=== PATIENT | male | born 1955 | race Caucasian/White ===

== ENCOUNTER 2020-01-07 13:18 | Inpatient (IN) | payer MEDICARE, OTHER ==
[~2020-01-07] VITALS: Ht 165.1 cm; Wt 69.9 kg
--- NOTE | 2020-01-07 13:25 | NUR ---
Patient BIB pvt ambulance via [facility]. Patient on a 5150 hold for GD / DTS / DTO. Patient cooperative, able to make needs known / follow commands. Breathing even and unlabored. no cough or SOB noted. Denies any CP / Dizziness / N / V / D. safety precautions implemented. s/r up x2. [employer] Gilder aware. No 1:1 sitter available.
[2020-01-07] MEDS ORDERED: ACET-2154 PO (13:42)
[2020-01-07] MEDS ORDERED: INSU100V39 SQ (13:42)
[2020-01-07] MEDS ORDERED: INSULIN REGULAR, HUMAN 300 UNIT/3 ML VIAL SQ ONE (14:00)
--- NOTE | 2020-01-07 14:05 | NUR ---
SECURITY AT BEDSIDE
[2020-01-07] MEDS ORDERED: INSULIN REGULAR, HUMAN 300 UNIT/3 ML VIAL ONE (14:11)
[2020-01-07] MEDS ORDERED: ACETAMINOPHEN ES 500 MG TABLET ONE (15:51)
[2020-01-07 16:00] VITALS: BP 134/96
--- NOTE | 2020-01-07 16:00 | NUR ---
Received patient from ER was placed on 5150 for DTS,DTO,GD,per 5150 patient's called [facility] after pt started acting erratically threatening her ,demanding money ,not eating for a week,and not bathing and urinating on himself.On face to face assessment, patient denies everything, except that he was not eating for some time because he was not hungry, stated "Yes, I am feeling depressed, but I want to go home..", poor eyes contact when talking to staff, disoriented to time, stated "It is December 29..", low energy level, cooperative with staff, unable to formulate a viable plan for self care.
[2020-01-07] MEDS ORDERED: MAGNESIUM HYDROXIDE 30 ML LIQUID UDC PO PRN (16:30)
[2020-01-07] MEDS ORDERED: MAG HYDROX/AL HYDROX/SIMETH 30 ML LIQUID UDC PO PRN (16:30)
[2020-01-07] MEDS ORDERED: BLOOD SUGAR DIAGNOSTIC 1 EACH STRIP VI ONE (16:30)
[2020-01-07] MEDS ORDERED: LORAZEPAM 0.5 MG TABLET PO PRN (16:30)
[2020-01-07] MEDS ORDERED: ZOLPIDEM 5 MG TABLET PO PRN (16:30)
[2020-01-07] MEDS ORDERED: DEXTROSE 50% 50 ML DISP.SYRIN IV PRN (16:45)
[2020-01-07 20:00] VITALS: BP 149/69
[2020-01-07] MEDS: BLOOD SUGAR DIAGNOSTIC 1 EACH STRIP VI SCH (20:55)
[2020-01-07] MEDS: INSULIN REGULAR, HUMAN 300 UNIT/3 ML VIAL SQ PRN (20:57)
--- NOTE | 2020-01-07 23:00 | NUR ---
Received pt sleeping comfortably in bed. Aroused easily to verbal stimuli. Alert and oriented x3. Palauan speaking, able to make needs known. No acute distress noted. No c/o pain or discomfort. Accucheck 169, insulin coverage given as per sliding scale. Pt denies SI/ HI. Compliant with care. Safety measures maintained. Will continue to monitor.
[2020-01-08] MEDS: ACETAMINOPHEN 325 MG TABLET PO PRN ×3 (03:52→20:10)
[2020-01-08] MEDS: BLOOD SUGAR DIAGNOSTIC 1 EACH STRIP VI SCH ×4 (06:33→21:13)
[2020-01-08 06:52] LABS: BASOPHILS % (AUTO) 0.7 % (0.0-2.0); EOSINOPHILS # (AUTO) 0.1 K/uL (0.0-0.7); EOSINOPHILS % (AUTO) 1.2 % (0.0-7.0); HEMATOCRIT 38.6 % (36.7-47.1); HEMOGLOBIN 13.1 g/dL (12.5-16.3); LYMPHOCYTES # (AUTO) 1.1 K/uL (20.0-40.0); LYMPHOCYTES % (AUTO) 15.2 % (20.5-51.5); MEAN CORPUSCULAR HGB CONC 34 g/dL (32.5-36.3); MEAN CORPUSCULAR VOLUME 85.7 fL (73.0-96.2); MONOCYTES # (AUTO) 0.3 K/uL (2.0-10.0); MONOCYTES % (AUTO) 3.6 % (0.0-11.0); NEUTROPHILS # (AUTO) 5.8 K/uL (1.8-8.9); NEUTROPHILS % (AUTO) 79.3 % (38.5-71.5); PLATELET COUNT (AUTO) 408 K/uL (152-348); RED BLOOD CELL COUNT(AUTO) 4.51 MIL/uL (4.06-5.63); WHITE BLOOD COUNT (AUTO) 7.2 K/uL (3.6-10.2)
[2020-01-08 07:29] LABS: THYROID STIMULATING HORMONE 0.239 mIU/mL (0.358-3.740)
[2020-01-08 07:30] VITALS: BP 139/80
[2020-01-08] MEDS: INSULIN REGULAR, HUMAN 300 UNIT/3 ML VIAL SQ PRN ×4 (08:18→21:16)
[2020-01-08 08:19] LABS: BILIRUBIN,TOTAL 0.4 mg/dL (0.2-1.0); CREATININE 1.2 mg/dL (0.6-1.3); MAGNESIUM 1.7 mg/dL (1.8-2.4); PHOSPHOROUS 3.6 mg/dL (2.5-4.9); POTASSIUM 4.1 mmol/L (3.5-5.1); TOTAL PROTEIN, SERUM 7.9 g/dL (6.4-8.2)
[2020-01-08] MEDS ORDERED: MAGNESIUM OXIDE 400 MG TABLET PO ONE (09:45)
[2020-01-08] MEDS: METFORMIN HCL 500 MG TABLET PO SCH ×2 (10:00→17:21)
[2020-01-08] MEDS: LOSARTAN POTASSIUM 25 MG TABLET PO SCH (10:00)
--- NOTE | 2020-01-08 11:10 | NUR ---
GPS: received a call from patients daughter Tracie Odonnell , she gave me the information that the medication that his father ( patient) abusing the medication is clonazepam 2mg and his taking 10 tablets / day, information was relayed to and to the nurse in charge today Rakan GRACE
[2020-01-08 16:00] VITALS: BP 145/80
--- NOTE | 2020-01-08 16:19 | NUR ---
Initial Discharge Plan: Pt currently resides at home with his located at [address] [place] [address]; ([phone]). Per pt, he would like to return home. SW will work with the pt and the MD regarding appropriate discharge planning. SW will form a safe and proper discharge.
--- NOTE | 2020-01-08 16:19 | NUR ---
Family Contact: SW called the pts daughter, Tammy ([phone]), who stated that the pt is no longer safe at home and will need placement. SW stated that she will refer him to SNF and keep her updated.
--- NOTE | 2020-01-08 18:39 | NUR ---
no distress noted, patient stayed in her bed most of the time, compliant with meds. Addendum: 01/08/20 at 1840 by LEXI MEDEL RN, RN denied suicidal thoughts
--- NOTE | 2020-01-08 19:28 | NUR ---
report given to night nurse
[2020-01-08] MEDS: QUETIAPINE FUMARATE 25 MG TABLET PO SCH (20:11)
[2020-01-08 20:20] VITALS: BP 149/79
--- NOTE | 2020-01-09 06:19 | NUR ---
Tylenol was given last night for c/o R knee pain. Effective per pt. Slept 5.30 hrs. BS 176.
[2020-01-09] MEDS: BLOOD SUGAR DIAGNOSTIC 1 EACH STRIP VI SCH ×4 (06:39→21:52)
[2020-01-09 07:30] VITALS: BP 147/84
[2020-01-09] MEDS: INSULIN REGULAR, HUMAN 300 UNIT/3 ML VIAL SQ PRN ×3 (08:16→21:58)
[2020-01-09] MEDS: METFORMIN HCL 500 MG TABLET PO SCH ×2 (08:29→17:23)
[2020-01-09] MEDS: MULTIVITAMINS,THERAPEUTIC TABLET PO SCH (08:29)
[2020-01-09] MEDS: LOSARTAN POTASSIUM 25 MG TABLET PO SCH (08:30)
[2020-01-09] MEDS ORDERED: MULTIVITAMINS,THERAPEUTIC TABLET PO SCH (09:00)
[2020-01-09 15:24] VITALS: BP 156/90
[2020-01-09] MEDS: ACETAMINOPHEN 325 MG TABLET PO PRN (20:10)
[2020-01-09] MEDS: QUETIAPINE FUMARATE 25 MG TABLET PO SCH (20:10)
[2020-01-09 20:50] VITALS: BP 134/94
[2020-01-10] MEDS: BLOOD SUGAR DIAGNOSTIC 1 EACH STRIP VI SCH ×4 (06:47→20:15)
[2020-01-10 07:30] VITALS: BP 152/91
[2020-01-10] MEDS: METFORMIN HCL 500 MG TABLET PO SCH ×2 (08:11→17:32)
[2020-01-10] MEDS: MULTIVITAMINS,THERAPEUTIC TABLET PO SCH (08:11)
[2020-01-10] MEDS: LOSARTAN POTASSIUM 25 MG TABLET PO SCH (08:12)
[2020-01-10] MEDS: INSULIN REGULAR, HUMAN 300 UNIT/3 ML VIAL SQ PRN ×4 (08:16→20:42)
[2020-01-10] MEDS ORDERED: IBUPROFEN 200 MG TABLET PO PRN (09:00)
--- NOTE | 2020-01-10 14:32 | NUR ---
Substance Abuse Intervention: SW conducted a substance abuse intervention with the pt due to the pt abusing his painkillers.
[2020-01-10 15:27] VITALS: BP 154/73
--- NOTE | 2020-01-10 15:45 | NUR ---
Gps/[employer] Converter- Dr Santos in to see patient, orders received, CT of the brain w/o contrast, pt. was informed.
[2020-01-10 20:00] VITALS: BP 142/91
[2020-01-10] MEDS: QUETIAPINE FUMARATE 25 MG TABLET PO SCH (21:54)
[2020-01-10] MEDS: ACETAMINOPHEN 325 MG TABLET PO PRN (22:41)
[2020-01-11] MEDS: BLOOD SUGAR DIAGNOSTIC 1 EACH STRIP VI SCH ×4 (06:35→20:20)
[2020-01-11 07:30] VITALS: BP 160/101
[2020-01-11] MEDS: LOSARTAN POTASSIUM 25 MG TABLET PO SCH (08:38)
[2020-01-11] MEDS: METFORMIN HCL 500 MG TABLET PO SCH ×2 (08:39→17:14)
[2020-01-11] MEDS: MULTIVITAMINS,THERAPEUTIC TABLET PO SCH (08:39)
[2020-01-11] MEDS: INSULIN REGULAR, HUMAN 300 UNIT/3 ML VIAL SQ PRN ×4 (08:41→20:23)
[2020-01-11 16:00] VITALS: BP 144/84
[2020-01-11] MEDS: QUETIAPINE FUMARATE 25 MG TABLET PO SCH (20:20)
[2020-01-11 21:06] VITALS: BP 161/81
[2020-01-11] MEDS: ACETAMINOPHEN 325 MG TABLET PO PRN (21:35)
[2020-01-12] MEDS: BLOOD SUGAR DIAGNOSTIC 1 EACH STRIP VI SCH ×4 (06:36→20:31)
[2020-01-12 07:30] VITALS: BP 154/90
[2020-01-12] MEDS: METFORMIN HCL 500 MG TABLET PO SCH ×2 (08:08→17:19)
[2020-01-12] MEDS: INSULIN REGULAR, HUMAN 300 UNIT/3 ML VIAL SQ PRN ×4 (08:08→20:37)
[2020-01-12] MEDS: LOSARTAN POTASSIUM 25 MG TABLET PO SCH (08:10)
[2020-01-12] MEDS: MULTIVITAMINS,THERAPEUTIC TABLET PO SCH (08:10)
[2020-01-12 15:20] VITALS: BP 167/91
--- NOTE | 2020-01-12 15:30 | NUR ---
Gps/Scout-Had been in and out of the activity room, interacting with his roommate. Pleasant, denies S.I./H.I.,medication compliant .
[2020-01-12 19:30] VITALS: BP 177/100
[2020-01-12 20:13] VITALS: BP 175/94
[2020-01-12] MEDS: QUETIAPINE FUMARATE 25 MG TABLET PO SCH (20:26)
[2020-01-12] MEDS: ACETAMINOPHEN 325 MG TABLET PO PRN (20:34)
[2020-01-12 21:15] VITALS: BP 155/94
--- NOTE | 2020-01-12 21:25 | NUR ---
Received patient in bed, AAO x3. Calm and cooperative. No SI. No behavioral issues.Compliant with medications. Able to make needs known. Accucheck done, BS: 221 covered by 4 units insulin based on insulin sliding scale. Safety measures maintained. Continue to monitor.
[2020-01-13] MEDS: BLOOD SUGAR DIAGNOSTIC 1 EACH STRIP VI SCH ×4 (06:32→21:12)
[2020-01-13 07:30] VITALS: BP 169/95
[2020-01-13] MEDS: LOSARTAN POTASSIUM 25 MG TABLET PO SCH (08:30)
[2020-01-13] MEDS: MULTIVITAMINS,THERAPEUTIC TABLET PO SCH (08:30)
[2020-01-13] MEDS: METFORMIN HCL 500 MG TABLET PO SCH ×2 (08:31→17:06)
[2020-01-13] MEDS: INSULIN REGULAR, HUMAN 300 UNIT/3 ML VIAL SQ PRN ×4 (08:32→21:14)
--- NOTE | 2020-01-13 10:26 | NUR ---
Probable Cause (PC) Hearing: Pts daughter, Tammy ([phone]), called the SW and the SW informed her that the pt has a PC hearing and explained what that entails. SW then informed her that the pts hold was upheld and that the pt will be discharged when the MD thinks that the pt is stable.
--- NOTE | 2020-01-13 10:27 | NUR ---
Probable Cause Hearing: Pts hold was upheld on the grounds of grave disability.
--- NOTE | 2020-01-13 10:58 | NUR ---
SW Family Contact: Spoke with patient's daughter, Tammy ([phone]) regarding discharge planning. Tammy stated that they would like the patient to return home upon discharge. This junior underwriter stated that referrals will be arranged for the patient upon discharge such as outpatient psychiatry and home health services. Tammy stated that either her or pt's , Tricia Gutierrez ([phone]) will maintenance and custodian supervisor the patient at the time of discharge and take home home. This junior underwriter spoke with Dr. Cheek who stated discharge will be planned for Monday. Tammy stated that Tricia will maintenance and custodian supervisor the pt at 11am on Monday.
--- NOTE | 2020-01-13 11:01 | NUR ---
[facility] Coordination of Care: [facility] faxed patient referral to [facility]. ( ) attention to Pam for home health services.
--- NOTE | 2020-01-13 11:15 | NUR ---
Received patient awake in bed, AOX3. Montenegrin speaking with minimal hungarian speaking. Patient compliance with medication. Patient cooperative with activities. tolerated well. Patient get along well with roommate. not in distress. will continue monitor
--- NOTE | 2020-01-13 12:01 | NUR ---
Social Work Firearms Report ([employer]): Aircraft Designer completed and submitted a [employer] firearms report for 5150 grave disability certification. A copy of report has been placed in patient chart.
--- NOTE | 2020-01-13 15:08 | NUR ---
Patient CT scan head without contrast relayed to MD Orr- neurologist. Patient seen and examined by MD Santos, no new order. Patient possible for discharge. will continue monitor
[2020-01-13 15:13] VITALS: BP 161/86
[2020-01-13] MEDS ORDERED: CARVEDILOL 6.25 MG TABLET PO SCH ×2 (18:00→21:00)
[2020-01-13 20:27] VITALS: BP 157/90
[2020-01-13] MEDS: ACETAMINOPHEN 325 MG TABLET PO PRN (21:12)
[2020-01-13] MEDS: QUETIAPINE FUMARATE 25 MG TABLET PO SCH (21:12)
--- NOTE | 2020-01-14 04:18 | NUR ---
Received patient in bed, AAO x3. Calm and cooperative. No SI. No behavioral issues.Compliant with medications. Able to make needs known. Accucheck done, BS: 208 covered by 4 units insulin based on insulin sliding scale. Safety measures maintained. Continue to monitor.
[2020-01-14] MEDS: BLOOD SUGAR DIAGNOSTIC 1 EACH STRIP VI SCH ×4 (06:31→21:14)
[2020-01-14 07:30] VITALS: BP 152/84
--- NOTE | 2020-01-14 08:00 | NUR ---
GPS: received patient AOx3, compliant with medication, denies Si and HI, patient in no distress
[2020-01-14] MEDS: LOSARTAN POTASSIUM 25 MG TABLET PO SCH (08:13)
[2020-01-14] MEDS: MULTIVITAMINS,THERAPEUTIC TABLET PO SCH (08:13)
[2020-01-14] MEDS: METFORMIN HCL 500 MG TABLET PO SCH ×2 (08:14→17:03)
[2020-01-14] MEDS: CARVEDILOL 6.25 MG TABLET PO SCH ×2 (08:15→21:18)
[2020-01-14] MEDS: INSULIN REGULAR, HUMAN 300 UNIT/3 ML VIAL SQ PRN ×4 (08:54→21:16)
[2020-01-14] MEDS ORDERED: MULTIVITAMINS,THERAPEUTIC TABLET PO SCH (18:30)
--- NOTE | 2020-01-14 18:31 | NUR ---
patint continue to be pleasant, no distress, compliant
[2020-01-14] MEDS: FOLIC ACID 1 MG TABLET PO SCH (18:34)
[2020-01-14] MEDS: THIAMINE HCL 100 MG TABLET PO SCH (18:34)
[2020-01-14 18:40] VITALS: BP 149/89
[2020-01-14 20:24] VITALS: BP 136/84
[2020-01-14] MEDS: QUETIAPINE FUMARATE 25 MG TABLET PO SCH (21:18)
[2020-01-14] MEDS: LORAZEPAM 1 MG TABLET PO PRN (23:47)
--- NOTE | 2020-01-15 03:28 | NUR ---
GPS/PT A/OX3, DENIED SI OR INTENT TO HARM SELF OR OTHERS. NO AGGRESSION AND AGITATION NOTED. NO C/O ABNORMAL. PT ABLE TO VERBALIZED NEEDS. BLOOD SUGAR WITHIN PARAMETER AND DUE INSULIN GIVEN PER SLIDING SCALE. PT C/O UNABLE TO REST AND PRN ATIVAN WAS GIVEN AT 2347. REASSESSED AND NOTED EFFECTIVENESS AT THIS TIME, PT RESTING COMFORTABLE AND ASLEEP WITH RISE OF CHEST NOTED. WILL CONTINUE MONITOR AND Q 15 HEAD COUNT ONGOING.
[2020-01-15] MEDS: BLOOD SUGAR DIAGNOSTIC 1 EACH STRIP VI SCH (06:41)
[2020-01-15 07:30] VITALS: BP 160/86
[2020-01-15] MEDS: INSULIN REGULAR, HUMAN 300 UNIT/3 ML VIAL SQ PRN (08:31)
[2020-01-15] MEDS: METFORMIN HCL 500 MG TABLET PO SCH (08:39)
[2020-01-15] MEDS: LOSARTAN POTASSIUM 25 MG TABLET PO SCH (08:39)
[2020-01-15] MEDS: THIAMINE HCL 100 MG TABLET PO SCH (08:40)
[2020-01-15] MEDS: MULTIVITAMINS,THERAPEUTIC TABLET PO SCH (08:40)
[2020-01-15] MEDS: FOLIC ACID 1 MG TABLET PO SCH (08:40)
[2020-01-15] MEDS: CARVEDILOL 6.25 MG TABLET PO SCH (08:41)
[2020-01-15] MEDS: LORAZEPAM 1 MG TABLET PO PRN (10:27)
--- NOTE | 2020-01-15 10:32 | NUR ---
Discharge Note: Patient will be discharged today back [address] [place] [address] ([phone]). Patients significant other, Tricia Gutierrez ([phone]) will be providing transportation for the patient today at 11AM. Patients daughter, Tammy ([phone]) is also aware and agreeable with discharge plans. Patient is aware and agreeable with discharge plans. Patient presents alert and oriented times 3. Patient denies suicidal or homicidal ideation. Patient presents with appropriate mood and congruent affect. Patient is referred to [facility] [address] [place] [address] ([phone]) for outpatient psychiatric services and has an appointment scheduled on Monday January 20, 2020 at 1pm. Patient will be following up with his primary care physician Dr. Odom [address] [place] [address] ([phone]) and has a follow up appointment scheduled on December at 3pm via Telephone. Patient is also referred to [facility], [facility]. ( ) Louis Orozco and will be admitted upon arrival home today. Patient will have medication management, shower assistance, physical therapy, and nurse visits several times a week. Patient was also provided with outpatient mental health resources to [facility] , and the National Suicide Prevention Lifeline .
[2020-01-15] MEDS ORDERED: CLONIDINE HCL 0.1 MG TABLET PO ONE (11:00)
[2020-01-15 11:25] VITALS: BP 168/89
--- NOTE | 2020-01-15 11:45 | NUR ---
1120 Discharged instructions given to patient regarding medications to continue at home. All belongings returned and signed by patient. Prescriptions both medical and psych given and intrusted to filed it to his pharmacy. 1145 also instructed to filed the prescription. Discharged to home with stble condition , no SI / no HI. Alert and ox 3stable condition.
== END 2020-01-15 11:45 | disposition home health service (06) | DRG 885 ==
LOC: ER 13:18 → GPS 15:55
PROVIDERS: ADMIT Psychiatry & Neurology Psychiatry; ATTEND Internal Medicine
DX: F29 Unspecified psychosis not due to a substance or known physiological condition (principal); F10.239 Alcohol dependence with withdrawal, unspecified; M19.90 Unspecified osteoarthritis, unspecified site; D47.3 Essential (hemorrhagic) thrombocythemia; I10 Essential (primary) hypertension; F17.210 Nicotine dependence, cigarettes, uncomplicated; Y90.9 Presence of alcohol in blood, level not specified; E83.42 Hypomagnesemia; Z96.653 Presence of artificial knee joint, bilateral; F03.90 Unspecified dementia, unspecified severity, without behavioral disturbance, psychotic disturbance, mood disturbance, and anxiety; D43.2 Neoplasm of uncertain behavior of brain, unspecified; E11.9 Type 2 diabetes mellitus without complications; F32.9 Major depressive disorder, single episode, unspecified; Z91.5 Personal history of self-harm; Z79.84 Long term (current) use of oral hypoglycemic drugs
CPT/HCPCS: 36415; 70450; 83735; 84100; 84443; 85025; A4663; A9150; J1815